=== PATIENT | male | born 1935 | race African-American/Black ===

== ENCOUNTER 2021-03-30 11:05 | Inpatient (IN) | payer BC, OTHER ==
[2021-03-30] MEDS ORDERED: LABETALOL HCL 5 MG/1 ML (100MG/20 ML VIAL) IVPUSH ONE (11:19)
[2021-03-30] MEDS: SODIUM CHLORIDE 1,000 ML IV SCH (11:39)
[2021-03-30 11:43] LABS: HEMATOCRIT 42.9 % (35.4-49); HEMOGLOBIN 14.5 GM/dL (11.7-16.9); MCH 30.7 pg (25.7-33.7); MCHC 33.8 g/dl (32.0-35.9); MEAN CELL VOLUME 90.8 fl (80-96); MEAN PLT VOLUME 8.8 fl (7.5-11.1); PLATELET COUNT 82 10^3/uL (134-434); RBC 4.73 M/mm3 (4.00-5.60); RDW 14.1 % (11.9-15.9); WHITE BLOOD COUNT 5.5 K/mm3 (4.0-10.0)
[2021-03-30 11:49] LABS: INR 1.09 (0.83-1.09); PROTHROMBIN TIME (PATIENT) 13.2 SEC (9.7-13.0)
[2021-03-30 11:51] LABS: ACTIVATED PTT 31.9 SECONDS (25.2-36.5)
[2021-03-30 12:02] LABS: CHLORIDE 103 mmol/L (98-107); SODIUM 138 mmol/L (136-145)
[2021-03-30 12:04] LABS: CALCIUM 9.6 mg/dL (8.5-10.1)
[2021-03-30 12:05] LABS: ALBUMIN 4.6 g/dl (3.4-5.0); ANION GAP 6 MMOL/L (8-16); ANISOCYTOSIS 1+; BLOOD UREA NITROGEN 9.5 mg/dL (7-18); CO2 29 mmol/L (21-32); GLUCOSE,RANDOM 223 mg/dL (74-106); MACROCYTOSIS 0; PLATELET ESTIMATE DECREASED
[2021-03-30 12:08] LABS: CHOLESTEROL 197 mg/dL (50-200); CREATININE 1.1 mg/dL (0.55-1.3); SGOT/AST 80 U/L (15-37); SGPT/ALT 100 U/L (13-61); TRIGLYCERIDES 79 mg/dL (0-150)
[2021-03-30 12:09] LABS: BILIRUBIN,TOTAL 0.7 mg/dL (0.2-1); LDL CHOLESTEROL (ONLY SJRH) 108 mg/dL (5-100)
[2021-03-30 12:11] LABS: ALK PHOS 127 U/L (45-117); HDL CHOLESTEROL 65 mg/dL (40-60)
[2021-03-30] MEDS ORDERED: NICARDIPINE 25 MG in DEXTROSE 5%-WATER - 240 ML IVPB SCH (12:15)
[2021-03-30 12:27] LABS: EPI CELLS 4 /uL (0-25.1); HYALINE CASTS 0 /uL (0-3.1); PH,URINE 8.5 (5.0-8.0); URINE APPEARANCE CLEAR; URINE BACTERIA 7 /uL (0-1359); URINE BILIRUBIN NEGATIVE (NEGATIVE); URINE COLOR YELLOW; URINE GLUCOSE (UA) 1+ (NEGATIVE); URINE KETONE NEGATIVE (NEGATIVE); URINE LEUK ESTERASE NEGATIVE (NEGATIVE); URINE NITRITE NEGATIVE (NEGATIVE); URINE PROTEIN 3+ (NEGATIVE); URINE RBC 32 /uL (0-23.9); URINE UROBILINOGEN 0.2 mg/dL (0.2-1.0); URINE WBC 4 /uL (0-25.8)
[2021-03-30] MEDS ORDERED: PANTOPRAZOLE SODIUM 40 MG/100 ML BAG IVPB ONE (17:53)
[2021-03-30] MEDS: PANTOPRAZOLE SODIUM 40 MG VIAL IVPUSH SCH (18:08)
[2021-03-30] MEDS: NICARDIPINE 25 MG in DEXTROSE 5%-WATER - 240 ML IVPB SCH (18:08)
[2021-03-30] MEDS ORDERED: SODIUM CHLORIDE 0.9% 500 ML INFUS.BAG IV ONE (19:13)
[2021-03-30 20:38] LABS: CREATININE, URINE RANDOM < 13.0 mg/dL (30-150)
[2021-03-30] MEDS: INSULIN SLIDING SCALE (NOVOLOG) 1 VIAL SQ SCH (21:34)
[2021-03-30] MEDS: HEPARIN NA (PORCINE) 5,000 UNITS/ML 1ML VIAL SQ SCH (21:34)
[2021-03-30] MEDS: CHLORHEXIDINE GLUCONATE 4% CLEANSER FOR DECOLONIZATION TP SCH (21:35)
[2021-03-30] MEDS: MUPIROCIN 2% TOPICAL OINTMENT FOR DECOLONIZATION NS SCH (22:00)
[2021-03-30] MEDS ORDERED: ACETAMINOPHEN INJECTION 100 ML IVPB ONE (23:25)
[2021-03-30 23:44] LABS: ALBUMIN 4.3 g/dl (3.4-5.0); BLOOD UREA NITROGEN 7.8 mg/dL (7-18)
[2021-03-30 23:49] LABS: BILIRUBIN,TOTAL 0.8 mg/dL (0.2-1); TOT PROT 8.5 g/dl (6.4-8.2)
[2021-03-31] MEDS ORDERED: INSULIN (NOVOLOG) ASPART 100 UNITS/ML 10ML VIAL ONE (01:17)
[2021-03-31] MEDS: DEXMEDETOMIDINE IN 0.9 % NACL 400 MCG/100 ML VIAL IVPB SCH ×2 (01:40→23:00)
[2021-03-31] MEDS: INSULIN SLIDING SCALE (NOVOLOG) 1 VIAL SQ SCH ×4 (06:24→21:41)
[2021-03-31] MEDS: HEPARIN NA (PORCINE) 5,000 UNITS/ML 1ML VIAL SQ SCH (06:24)
[2021-03-31 07:44] LABS: HEMATOCRIT 36.1 % (35.4-49); HEMOGLOBIN 12.7 GM/dL (11.7-16.9); MCH 31.3 pg (25.7-33.7); MCHC 35.1 g/dl (32.0-35.9); MEAN CELL VOLUME 89.2 fl (80-96); MEAN PLT VOLUME 9.2 fl (7.5-11.1); PLATELET COUNT 81 10^3/uL (134-434); RBC 4.05 M/mm3 (4.00-5.60); RDW 14.2 % (11.9-15.9); WHITE BLOOD COUNT 7.6 K/mm3 (4.0-10.0)
[2021-03-31 08:09] LABS: CALCIUM 8.4 mg/dL (8.5-10.1)
[2021-03-31 08:10] LABS: ALBUMIN 3.6 g/dl (3.4-5.0); BLOOD UREA NITROGEN 9.5 mg/dL (7-18); MAGNESIUM 1.3 mg/dL (1.8-2.4)
[2021-03-31 08:13] LABS: INR 1.25 (0.83-1.09); PROTHROMBIN TIME (PATIENT) 15.3 SEC (9.7-13.0)
[2021-03-31 08:14] LABS: BILIRUBIN,TOTAL 0.8 mg/dL (0.2-1); PHOSPHOROUS 2.5 mg/dL (2.5-4.9); TOT PROT 7.1 g/dl (6.4-8.2)
[2021-03-31] MEDS ORDERED: MAGNESIUM SULFATE IN WATER 2 GM/50 ML IVPB IVPB ONE (08:45)
[2021-03-31 09:54] LABS: ANISOCYTOSIS 0; MACROCYTOSIS 0; PLATELET ESTIMATE DECREASED
[2021-03-31] MEDS: PANTOPRAZOLE SODIUM 40 MG VIAL IVPUSH SCH (10:46)
[2021-03-31] MEDS: ENOXAPARIN NA (PORCINE) 80 MG/0.8 ML DISP.SYRIN SQ SCH ×2 (10:46→21:12)
[2021-03-31] MEDS: MUPIROCIN 2% TOPICAL OINTMENT FOR DECOLONIZATION NS SCH ×2 (10:47→21:12)
[2021-03-31] MEDS ORDERED: LORazepam 2 MG/ML SDV VIAL IVPUSH ONE (10:58)
[2021-03-31] MEDS: NICARDIPINE 25 MG in DEXTROSE 5%-WATER - 240 ML IVPB SCH (18:44)
[2021-03-31] MEDS: LORazepam 2 MG/ML SDV VIAL IVPUSH PRN (19:30)
[2021-03-31] MEDS: CHLORHEXIDINE GLUCONATE 4% CLEANSER FOR DECOLONIZATION TP SCH (21:12)
[2021-03-31] MEDS: SODIUM CHLORIDE 1,000 ML IV SCH (21:12)
[2021-04-01] MEDS: INSULIN SLIDING SCALE (NOVOLOG) 1 VIAL SQ SCH ×4 (06:30→22:27)
[2021-04-01] MEDS ORDERED: MAGNESIUM 2GM/50ML STERILE WATER IVPB IVPB ONE (09:45)
[2021-04-01] MEDS: ENOXAPARIN NA (PORCINE) 80 MG/0.8 ML DISP.SYRIN SQ SCH ×2 (10:55→22:08)
[2021-04-01] MEDS: PANTOPRAZOLE SODIUM 40 MG VIAL IVPUSH SCH (10:55)
[2021-04-01] MEDS: MUPIROCIN 2% TOPICAL OINTMENT FOR DECOLONIZATION NS SCH ×2 (11:03→22:07)
[2021-04-01 11:28] LABS: HEMATOCRIT 40.7 % (35.4-49); HEMOGLOBIN 14.2 GM/dL (11.7-16.9); MCH 31.3 pg (25.7-33.7); MEAN CELL VOLUME 89.5 fl (80-96); PLATELET COUNT 86 10^3/uL (134-434); RBC 4.54 M/mm3 (4.00-5.60); RDW 14.4 % (11.9-15.9); WHITE BLOOD COUNT 8.3 K/mm3 (4.0-10.0)
[2021-04-01 11:31] LABS: INR 1.14 (0.83-1.09); PROTHROMBIN TIME (PATIENT) 13.7 SEC (9.7-13.0)
[2021-04-01 11:34] LABS: ACTIVATED PTT 27.6 SECONDS (25.2-36.5)
[2021-04-01 11:55] LABS: ALBUMIN 3.6 g/dl (3.4-5.0); BLOOD UREA NITROGEN 18.4 mg/dL (7-18); CALCIUM 8.9 mg/dL (8.5-10.1)
[2021-04-01 11:58] LABS: CREATININE 1.4 mg/dL (0.55-1.3)
[2021-04-01 12:00] LABS: BILIRUBIN,TOTAL 1.2 mg/dL (0.2-1); TOT PROT 7.4 g/dl (6.4-8.2)
[2021-04-01] MEDS: LORazepam 2 MG/ML SDV VIAL IVPUSH PRN ×2 (13:10→22:07)
[2021-04-01 13:30] LABS: ANISOCYTOSIS 0; MACROCYTOSIS 0; PLATELET ESTIMATE DECREASED
[2021-04-01] MEDS ORDERED: HALOPERIDOL LACTATE 5 MG/ML IM ONE (13:35)
[2021-04-01] MEDS ORDERED: SODIUM CHLORIDE 0.45% 1,000 ML IV SCH (15:45)
[2021-04-01 16:12] VITALS: BMI 26.6
[2021-04-01] MEDS ORDERED: LABETALOL HCL 5 MG/1 ML (100MG/20 ML VIAL) IVPUSH ONE (17:37)
[2021-04-01] MEDS: NICARDIPINE 25 MG in DEXTROSE 5%-WATER - 240 ML IVPB SCH (17:53)
[2021-04-01] MEDS: ASPIRIN COATED 81 MG TABLET.EC PO SCH (17:59)
[2021-04-01] MEDS: SODIUM CHLORIDE 1,000 ML IV SCH (19:50)
[2021-04-01] MEDS ORDERED: ATORVASTATIN CA 80 MG TABLET (FP) PO SCH (22:00)
[2021-04-01] MEDS: CHLORHEXIDINE GLUCONATE 4% CLEANSER FOR DECOLONIZATION TP SCH (22:07)
[2021-04-02] MEDS: INSULIN SLIDING SCALE (NOVOLOG) 1 VIAL SQ SCH ×5 (06:48→21:17)
[2021-04-02 08:20] LABS: HEMATOCRIT 39.7 % (35.4-49); HEMOGLOBIN 13.7 GM/dL (11.7-16.9); MCH 30.8 pg (25.7-33.7); MCHC 34.7 g/dl (32.0-35.9); MEAN CELL VOLUME 88.8 fl (80-96); MEAN PLT VOLUME 9.4 fl (7.5-11.1); PLATELET COUNT 95 10^3/uL (134-434); RBC 4.47 M/mm3 (4.00-5.60); RDW 14.3 % (11.9-15.9); WHITE BLOOD COUNT 12.1 K/mm3 (4.0-10.0)
[2021-04-02 08:40] LABS: CALCIUM 8.7 mg/dL (8.5-10.1)
[2021-04-02 08:41] LABS: MAGNESIUM 2.2 mg/dL (1.8-2.4)
[2021-04-02 08:44] LABS: ALBUMIN 3.6 g/dl (3.4-5.0); BLOOD UREA NITROGEN 18.6 mg/dL (7-18); CREATININE 1.3 mg/dL (0.55-1.3)
[2021-04-02 08:45] LABS: BILIRUBIN,TOTAL 1.2 mg/dL (0.2-1); TOT PROT 7.5 g/dl (6.4-8.2)
[2021-04-02 08:47] LABS: PHOSPHOROUS 2.2 mg/dL (2.5-4.9)
[2021-04-02] MEDS: ENOXAPARIN NA (PORCINE) 80 MG/0.8 ML DISP.SYRIN SQ SCH ×2 (10:41→21:16)
[2021-04-02] MEDS: ASPIRIN COATED 81 MG TABLET.EC PO SCH (10:42)
[2021-04-02] MEDS: DEXMEDETOMIDINE IN 0.9 % NACL 400 MCG/100 ML VIAL IVPB SCH (10:42)
[2021-04-02] MEDS: MUPIROCIN 2% TOPICAL OINTMENT FOR DECOLONIZATION NS SCH (10:42)
[2021-04-02] MEDS: PANTOPRAZOLE SODIUM 40 MG VIAL IVPUSH SCH (10:42)
[2021-04-02 12:08] LABS: ANISOCYTOSIS 0; MACROCYTOSIS 0; PLATELET ESTIMATE DECREASED
[2021-04-02] MEDS ORDERED: NAPH,MB-DB/K PH,MBDB POWDER PACKET PO ONE (13:45)
[2021-04-02] MEDS: ACETAMINOPHEN 325 MG TABLET (FP) PO PRN (13:46)
[2021-04-02] MEDS ORDERED: DEXMEDETOMIDINE IN 0.9 % NACL 400 MCG/100 ML VIAL IVPB SCH (16:18)
[2021-04-02] MEDS ORDERED: NICARDIPINE 25 MG in DEXTROSE 5%-WATER - 240 ML IVPB SCH (16:18)
[2021-04-02] MEDS ORDERED: LORazepam 2 MG/ML SDV VIAL IVPUSH PRN (16:18)
[2021-04-02] MEDS: ATORVASTATIN CA 80 MG TABLET (FP) PO SCH (21:16)
[2021-04-02] MEDS ORDERED: CHLORHEXIDINE GLUCONATE 4% CLEANSER FOR DECOLONIZATION TP SCH (22:00)
[2021-04-02] MEDS ORDERED: MUPIROCIN 2% TOPICAL OINTMENT FOR DECOLONIZATION NS SCH (22:00)
[2021-04-03] MEDS: INSULIN SLIDING SCALE (NOVOLOG) 1 VIAL SQ SCH ×4 (06:26→21:49)
[2021-04-03] MEDS: PANTOPRAZOLE SODIUM 40 MG VIAL IVPUSH SCH (09:30)
[2021-04-03] MEDS: ENOXAPARIN NA (PORCINE) 80 MG/0.8 ML DISP.SYRIN SQ SCH ×2 (09:30→21:50)
[2021-04-03] MEDS: ASPIRIN COATED 81 MG TABLET.EC PO SCH (09:31)
[2021-04-03] MEDS: metoPROLOL SUCCINATE 25 MG TAB.SR.24H (FP) PO SCH (09:31)
[2021-04-03] MEDS: TAMSULOSIN HCL 0.4 MG CAP PO SCH (09:31)
[2021-04-03] MEDS: ATORVASTATIN CA 80 MG TABLET (FP) PO SCH (21:50)
[2021-04-04] MEDS: INSULIN SLIDING SCALE (NOVOLOG) 1 VIAL SQ SCH ×4 (06:43→21:20)
[2021-04-04 08:17] LABS: HEMATOCRIT 34.2 % (35.4-49); HEMOGLOBIN 11.8 GM/dL (11.7-16.9); MCHC 34.5 g/dl (32.0-35.9); MEAN CELL VOLUME 89.8 fl (80-96); MEAN PLT VOLUME 10.6 fl (7.5-11.1); PLATELET COUNT 99 10^3/uL (134-434); RDW 14.3 % (11.9-15.9)
[2021-04-04 08:46] LABS: BLOOD UREA NITROGEN 19.8 mg/dL (7-18); CALCIUM 8.4 mg/dL (8.5-10.1)
[2021-04-04 08:49] LABS: CREATININE 1.1 mg/dL (0.55-1.3); PHOSPHOROUS 2.7 mg/dL (2.5-4.9)
[2021-04-04 08:52] LABS: BILIRUBIN,TOTAL 0.6 mg/dL (0.2-1); TOT PROT 6.2 g/dl (6.4-8.2)
[2021-04-04 08:57] LABS: ALBUMIN 2.8 g/dl (3.4-5.0)
[2021-04-04] MEDS: ENOXAPARIN NA (PORCINE) 80 MG/0.8 ML DISP.SYRIN SQ SCH ×2 (09:12→21:18)
[2021-04-04] MEDS: metoPROLOL SUCCINATE 25 MG TAB.SR.24H (FP) PO SCH (09:12)
[2021-04-04] MEDS: TAMSULOSIN HCL 0.4 MG CAP PO SCH (09:12)
[2021-04-04] MEDS: ASPIRIN COATED 81 MG TABLET.EC PO SCH (09:12)
[2021-04-04] MEDS: PANTOPRAZOLE SODIUM 40 MG VIAL IVPUSH SCH (09:12)
[2021-04-04] MEDS: INSULIN (LEVEMIR) 100 UNITS/ML UNITS SQ SCH ×2 (12:14→21:18)
[2021-04-04 13:07] LABS: ANISOCYTOSIS 0; MACROCYTOSIS 0; PLATELET ESTIMATE DECREASED
[2021-04-04] MEDS: ACETAMINOPHEN 325 MG TABLET (FP) PO PRN (21:16)
[2021-04-04] MEDS: ATORVASTATIN CA 80 MG TABLET (FP) PO SCH (21:17)
[2021-04-05] MEDS: INSULIN (LEVEMIR) 100 UNITS/ML UNITS SQ SCH ×3 (06:11→21:51)
[2021-04-05] MEDS: INSULIN SLIDING SCALE (NOVOLOG) 1 VIAL SQ SCH ×4 (06:12→21:50)
[2021-04-05] MEDS: TAMSULOSIN HCL 0.4 MG CAP PO SCH (09:12)
[2021-04-05] MEDS: ASPIRIN COATED 81 MG TABLET.EC PO SCH (09:12)
[2021-04-05] MEDS: metoPROLOL SUCCINATE 25 MG TAB.SR.24H (FP) PO SCH (09:12)
[2021-04-05] MEDS: APIXABAN 5 MG TABLET PO SCH ×2 (09:12→21:44)
[2021-04-05] MEDS: ACETAMINOPHEN 325 MG TABLET (FP) PO PRN (09:12)
[2021-04-05] MEDS: ATORVASTATIN CA 80 MG TABLET (FP) PO SCH (21:43)
[2021-04-06] MEDS: ACETAMINOPHEN 325 MG TABLET (FP) PO PRN ×2 (05:53→21:05)
[2021-04-06] MEDS: INSULIN SLIDING SCALE (NOVOLOG) 1 VIAL SQ SCH ×4 (06:00→21:11)
[2021-04-06] MEDS: INSULIN (LEVEMIR) 100 UNITS/ML UNITS SQ SCH ×2 (06:01→21:11)
[2021-04-06] MEDS: metoPROLOL SUCCINATE 25 MG TAB.SR.24H (FP) PO SCH (10:12)
[2021-04-06] MEDS: APIXABAN 5 MG TABLET PO SCH ×2 (10:12→21:05)
[2021-04-06] MEDS: TAMSULOSIN HCL 0.4 MG CAP PO SCH (10:12)
[2021-04-06] MEDS: ASPIRIN COATED 81 MG TABLET.EC PO SCH (10:13)
[2021-04-06] MEDS: ATORVASTATIN CA 80 MG TABLET (FP) PO SCH (21:04)
[2021-04-07] MEDS: INSULIN SLIDING SCALE (NOVOLOG) 1 VIAL SQ SCH ×4 (06:03→21:54)
[2021-04-07] MEDS: INSULIN (LEVEMIR) 100 UNITS/ML UNITS SQ SCH ×2 (06:04→21:49)
[2021-04-07 06:45] LABS: BASO % 0.9 % (0-2.0); EOS % 0.2 % (0-4.5); HEMATOCRIT 33.6 % (35.4-49); HEMOGLOBIN 11.8 GM/dL (11.7-16.9); LYMPH % 22.8 % (8-40); MCH 31.4 pg (25.7-33.7); MEAN CELL VOLUME 89.7 fl (80-96); MEAN PLT VOLUME 9.1 fl (7.5-11.1); NEUT % 44.1 % (42.8-82.8); PLATELET COUNT 185 10^3/uL (134-434); RBC 3.74 M/mm3 (4.00-5.60); RDW 13.7 % (11.9-15.9); WHITE BLOOD COUNT 6.5 K/mm3 (4.0-10.0)
[2021-04-07] MEDS ORDERED: INSULIN SLIDING SCALE (NOVOLOG) 1 VIAL SQ ONE (06:54)
[2021-04-07] MEDS ORDERED: INSULIN (LEVEMIR) 100 UNITS/ML UNITS SQ ONE (06:55)
[2021-04-07 07:04] LABS: CALCIUM 9.4 mg/dL (8.5-10.1)
[2021-04-07 07:05] LABS: BLOOD UREA NITROGEN 10.8 mg/dL (7-18)
[2021-04-07 07:10] LABS: BILIRUBIN,TOTAL 0.7 mg/dL (0.2-1); TOT PROT 6.7 g/dl (6.4-8.2)
[2021-04-07] MEDS: TAMSULOSIN HCL 0.4 MG CAP PO SCH (09:07)
[2021-04-07] MEDS: APIXABAN 5 MG TABLET PO SCH ×2 (09:07→21:49)
[2021-04-07] MEDS: ASPIRIN COATED 81 MG TABLET.EC PO SCH (09:07)
[2021-04-07] MEDS: metoPROLOL SUCCINATE 25 MG TAB.SR.24H (FP) PO SCH (09:08)
[2021-04-07 10:02] LABS: ANISOCYTOSIS 0; MACROCYTOSIS 0; PLATELET ESTIMATE NORMAL
[2021-04-07] MEDS ORDERED: FAMOTIDINE 20 MG TABLET PO ONE (18:00)
[2021-04-07] MEDS: ATORVASTATIN CA 80 MG TABLET (FP) PO SCH (21:49)
[2021-04-07] MEDS: ACETAMINOPHEN 325 MG TABLET (FP) PO PRN (21:49)
[2021-04-08] MEDS: INSULIN SLIDING SCALE (NOVOLOG) 1 VIAL SQ SCH ×4 (06:25→21:53)
[2021-04-08] MEDS: INSULIN (LEVEMIR) 100 UNITS/ML UNITS SQ SCH ×2 (06:26→21:55)
[2021-04-08] MEDS: TAMSULOSIN HCL 0.4 MG CAP PO SCH (08:58)
[2021-04-08] MEDS: ASPIRIN COATED 81 MG TABLET.EC PO SCH (09:01)
[2021-04-08] MEDS: FAMOTIDINE 20 MG TABLET PO SCH ×2 (09:01→21:50)
[2021-04-08] MEDS: APIXABAN 5 MG TABLET PO SCH ×2 (09:01→21:50)
[2021-04-08] MEDS: RAMIPRIL 2.5 MG CAPSULE PO SCH (15:35)
[2021-04-08] MEDS: ATORVASTATIN CA 80 MG TABLET (FP) PO SCH (21:49)
[2021-04-09] MEDS: INSULIN SLIDING SCALE (NOVOLOG) 1 VIAL SQ SCH ×4 (06:25→21:21)
[2021-04-09] MEDS: INSULIN (LEVEMIR) 100 UNITS/ML UNITS SQ SCH ×2 (06:26→21:27)
[2021-04-09] MEDS: TAMSULOSIN HCL 0.4 MG CAP PO SCH (08:37)
[2021-04-09] MEDS ORDERED: PT OWN MED DRAWER 7, Y5N ONE (10:11)
[2021-04-09] MEDS: ASPIRIN COATED 81 MG TABLET.EC PO SCH (10:16)
[2021-04-09] MEDS: APIXABAN 5 MG TABLET PO SCH ×2 (10:16→21:21)
[2021-04-09] MEDS: FAMOTIDINE 20 MG TABLET PO SCH ×2 (10:16→21:20)
[2021-04-09] MEDS: RAMIPRIL 2.5 MG CAPSULE PO SCH (10:16)
[2021-04-09 13:57] LABS: CHLORIDE 97 mmol/L (98-107); SODIUM 133 mmol/L (136-145)
[2021-04-09 13:57] LABS: CHLORIDE 96 mmol/L (98-107); SODIUM 132 mmol/L (136-145)
[2021-04-09 13:58] LABS: CALCIUM 9.3 mg/dL (8.5-10.1)
[2021-04-09 13:59] LABS: ANION GAP 7 MMOL/L (8-16); BLOOD UREA NITROGEN 16.6 mg/dL (7-18); CO2 29 mmol/L (21-32); GLUCOSE,RANDOM 274 mg/dL (74-106)
[2021-04-09 13:59] LABS: CALCIUM 9.3 mg/dL (8.5-10.1)
[2021-04-09 14:00] LABS: ANION GAP 8 MMOL/L (8-16); CO2 28 mmol/L (21-32); GLUCOSE,RANDOM 278 mg/dL (74-106)
[2021-04-09 14:02] LABS: CREATININE 1.2 mg/dL (0.55-1.3)
[2021-04-09 14:03] LABS: CREATININE 1.1 mg/dL (0.55-1.3)
[2021-04-09] MEDS: RAMIPRIL 5 MG CAPSULE PO SCH (14:56)
[2021-04-09] MEDS: ATORVASTATIN CA 80 MG TABLET (FP) PO SCH (21:20)
[2021-04-09] MEDS: ACETAMINOPHEN 325 MG TABLET (FP) PO PRN (22:58)
[2021-04-10] MEDS: INSULIN (LEVEMIR) 100 UNITS/ML UNITS SQ SCH (06:16)
[2021-04-10] MEDS: INSULIN SLIDING SCALE (NOVOLOG) 1 VIAL SQ SCH ×2 (06:16→11:15)
[2021-04-10] MEDS: RAMIPRIL 5 MG CAPSULE PO SCH (10:16)
[2021-04-10] MEDS: APIXABAN 5 MG TABLET PO SCH (10:16)
[2021-04-10] MEDS: FAMOTIDINE 20 MG TABLET PO SCH (10:16)
[2021-04-10] MEDS: TAMSULOSIN HCL 0.4 MG CAP PO SCH (10:16)
[2021-04-10] MEDS: ASPIRIN COATED 81 MG TABLET.EC PO SCH (10:16)
[2021-04-10] MEDS ORDERED: RAMIPRIL 2.5 MG CAPSULE PO SCH (11:45)
[2021-04-10 11:52] VITALS: BP 122/62; PULSE 69; TEMP 98.7
== END 2021-04-10 10:45 | DRG 65 ==
LOC: JER 11:05 → JERBED 16:03 → JICU 21:29 → J4S 04-01 20:47
PROVIDERS: ADMIT Family Medicine; ATTEND Family Medicine
DX: I63.89 Other cerebral infarction (principal); I16.1 Hypertensive emergency; N17.9 Acute kidney failure, unspecified; I25.10 Atherosclerotic heart disease of native coronary artery without angina pectoris; I10 Essential (primary) hypertension; E11.65 Type 2 diabetes mellitus with hyperglycemia; R29.707 NIHSS score 7; F03.90 Unspecified dementia, unspecified severity, without behavioral disturbance, psychotic disturbance, mood disturbance, and anxiety; N40.0 Benign prostatic hyperplasia without lower urinary tract symptoms; Z95.1 Presence of aortocoronary bypass graft; Z79.01 Long term (current) use of anticoagulants; I48.0 Paroxysmal atrial fibrillation; E78.5 Hyperlipidemia, unspecified; R35.8 Other polyuria
CPT/HCPCS: 36415; 70450-TC; 70496-TC; 70498-TC; 70551-TC; 71045-TC-FY; 80048; 80053; 80061; 81003; 82550; 82553; 82570; 82962; 83036; 83735; 83935; 84100; 84300; 84484; 85025; 85610; 85730; 86850; 86900; 86901; 87040; 93005; 93010; 93306-TC; 93971; 97116-GP; 97162-GP; 99285-25; C9803; J0131; J1644; Q9967; U0003; U0005

== ENCOUNTER 2021-04-11 15:45 | Inpatient (IN) | payer BC, OTHER ==
[2021-04-11 16:14] VITALS: BMI 29.6
[2021-04-11 17:57] LABS: HEMATOCRIT 35.7 % (35.4-49); HEMOGLOBIN 11.8 GM/dL (11.7-16.9); MCH 30.4 pg (25.7-33.7); MCHC 33.1 g/dl (32.0-35.9); MEAN CELL VOLUME 91.7 fl (80-96); PLATELET COUNT 276 10^3/uL (134-434); RBC 3.89 M/mm3 (4.00-5.60); RDW 14.3 % (11.9-15.9); WHITE BLOOD COUNT 10.4 K/mm3 (4.0-10.0)
[2021-04-11 18:02] LABS: CHLORIDE 98 mmol/L (98-107); SODIUM 134 mmol/L (136-145)
[2021-04-11 18:04] LABS: CALCIUM 10.3 mg/dL (8.5-10.1)
[2021-04-11 18:05] LABS: ALBUMIN 3.6 g/dl (3.4-5.0); ANION GAP 8 MMOL/L (8-16); BLOOD UREA NITROGEN 24.2 mg/dL (7-18); CO2 28 mmol/L (21-32); GLUCOSE,RANDOM 197 mg/dL (74-106)
[2021-04-11 18:08] LABS: CREATININE 1.5 mg/dL (0.55-1.3); SGOT/AST 58 U/L (15-37); SGPT/ALT 65 U/L (13-61)
[2021-04-11 18:09] LABS: BILIRUBIN,TOTAL 0.8 mg/dL (0.2-1)
[2021-04-11 18:10] LABS: ALK PHOS 103 U/L (45-117)
[2021-04-11] MEDS ORDERED: LACTATED RINGERS SOLUTION 1000 ML INFUS.BAG IV ONE (18:12)
[2021-04-11] MEDS: INSULIN SLIDING SCALE (NOVOLOG) 1 VIAL SQ SCH (22:36)
[2021-04-12] MEDS: DEXTROSE 5%-0.45% SALINE 1,000 ML IV SCH (05:56)
[2021-04-12 06:10] LABS: HEMATOCRIT 34.9 % (35.4-49); HEMOGLOBIN 11.8 GM/dL (11.7-16.9); MCH 31.2 pg (25.7-33.7); MCHC 33.9 g/dl (32.0-35.9); MEAN PLT VOLUME 9.2 fl (7.5-11.1); PLATELET COUNT 245 10^3/uL (134-434); RBC 3.79 M/mm3 (4.00-5.60); RDW 14.2 % (11.9-15.9); WHITE BLOOD COUNT 11.2 K/mm3 (4.0-10.0)
[2021-04-12 06:15] LABS: INR 1.41 (0.83-1.09); PROTHROMBIN TIME (PATIENT) 17.4 SEC (9.7-13.0)
[2021-04-12 06:18] LABS: ACTIVATED PTT 30.3 SECONDS (25.2-36.5)
[2021-04-12 06:27] LABS: CALCIUM 9.4 mg/dL (8.5-10.1)
[2021-04-12 06:31] LABS: CREATININE 1.2 mg/dL (0.55-1.3)
[2021-04-12] MEDS: INSULIN SLIDING SCALE (NOVOLOG) 1 VIAL SQ SCH ×4 (08:04→21:22)
[2021-04-12] MEDS ORDERED: metoPROLOL SUCCINATE 25 MG TAB.SR.24H (FP) ONE (08:53)
[2021-04-12] MEDS ORDERED: FAMOTIDINE 20 MG TABLET ONE (08:53)
[2021-04-12] MEDS ORDERED: TAMSULOSIN HCL 0.4 MG CAP ONE (08:54)
[2021-04-12] MEDS: TAMSULOSIN HCL 0.4 MG CAP PO SCH (09:00)
[2021-04-12 09:34] LABS: ANISOCYTOSIS 0; HELMET CELLS 0; HOWELL-JOLLY BODIES 0; MACROCYTOSIS 0; OVALOCYTE 0; PLATELET ESTIMATE NORMAL; ROULEAU 0; SICKELED CELLS 0; TARGET CELLS 0; TEAR DROP CELLS 0; TOXIC GRANULATION 0
[2021-04-12] MEDS ORDERED: ASPIRIN COATED 81 MG TABLET.EC PO SCH (10:00)
[2021-04-12] MEDS: metoPROLOL SUCCINATE 25 MG TAB.SR.24H (FP) PO SCH (10:08)
[2021-04-12] MEDS: FAMOTIDINE 20 MG TABLET PO SCH ×2 (10:08→21:22)
[2021-04-12] MEDS: RAMIPRIL 2.5 MG CAPSULE PO SCH (10:08)
[2021-04-12] MEDS: ATORVASTATIN CA 80 MG TABLET (FP) PO SCH (21:22)
[2021-04-12] MEDS: INSULIN (LEVEMIR) 100 UNITS/ML UNITS SQ SCH (22:34)
[2021-04-13] MEDS: DEXTROSE 5%-0.45% SALINE 1,000 ML IV SCH (06:15)
[2021-04-13] MEDS: INSULIN SLIDING SCALE (NOVOLOG) 1 VIAL SQ SCH ×4 (06:16→21:48)
[2021-04-13 07:37] LABS: HEMATOCRIT 29.9 % (35.4-49); HEMOGLOBIN 10.3 GM/dL (11.7-16.9); MCH 31.6 pg (25.7-33.7); MCHC 34.6 g/dl (32.0-35.9); MEAN CELL VOLUME 91.5 fl (80-96); MEAN PLT VOLUME 9.4 fl (7.5-11.1); PLATELET COUNT 217 10^3/uL (134-434); RBC 3.26 M/mm3 (4.00-5.60); RDW 14.1 % (11.9-15.9); WHITE BLOOD COUNT 8.3 K/mm3 (4.0-10.0)
[2021-04-13 08:06] LABS: BLOOD UREA NITROGEN 15.5 mg/dL (7-18); CALCIUM 8.8 mg/dL (8.5-10.1); MAGNESIUM 1.9 mg/dL (1.8-2.4)
[2021-04-13 08:23] LABS: ALBUMIN 2.8 g/dl (3.4-5.0)
[2021-04-13] MEDS: FAMOTIDINE 20 MG TABLET PO SCH ×2 (09:47→21:45)
[2021-04-13] MEDS: ASPIRIN COATED 81 MG TABLET.EC PO SCH (09:47)
[2021-04-13] MEDS: RAMIPRIL 2.5 MG CAPSULE PO SCH (09:47)
[2021-04-13] MEDS: metoPROLOL SUCCINATE 25 MG TAB.SR.24H (FP) PO SCH (09:47)
[2021-04-13] MEDS: TAMSULOSIN HCL 0.4 MG CAP PO SCH (09:47)
[2021-04-13 11:19] LABS: ANISOCYTOSIS 1+; MACROCYTOSIS 0; PLATELET ESTIMATE NORMAL
[2021-04-13] MEDS ORDERED: SODIUM CHLORIDE 250 ML IV ONE (15:30)
[2021-04-13] MEDS: ATORVASTATIN CA 80 MG TABLET (FP) PO SCH (21:45)
[2021-04-13] MEDS: INSULIN (LEVEMIR) 100 UNITS/ML UNITS SQ SCH (21:47)
[2021-04-14] MEDS: INSULIN SLIDING SCALE (NOVOLOG) 1 VIAL SQ SCH ×4 (06:06→22:25)
[2021-04-14] MEDS: DEXTROSE 5%-0.45% SALINE 1,000 ML IV SCH (06:07)
[2021-04-14 08:09] LABS: HEMOGLOBIN 10.3 GM/dL (11.7-16.9); MCH 31.5 pg (25.7-33.7); MCHC 34.4 g/dl (32.0-35.9); MEAN CELL VOLUME 91.6 fl (80-96); PLATELET COUNT 213 10^3/uL (134-434); RBC 3.28 M/mm3 (4.00-5.60); WHITE BLOOD COUNT 7.7 K/mm3 (4.0-10.0)
[2021-04-14 08:32] LABS: ALBUMIN 2.6 g/dl (3.4-5.0); BLOOD UREA NITROGEN 10.8 mg/dL (7-18); CALCIUM 8.4 mg/dL (8.5-10.1)
[2021-04-14 08:36] LABS: BILIRUBIN,TOTAL 0.9 mg/dL (0.2-1)
[2021-04-14 09:21] LABS: ANISOCYTOSIS 1+; MACROCYTOSIS 0; PLATELET ESTIMATE NORMAL
[2021-04-14] MEDS: FAMOTIDINE 20 MG TABLET PO SCH ×2 (10:14→22:17)
[2021-04-14] MEDS: RAMIPRIL 2.5 MG CAPSULE PO SCH (10:14)
[2021-04-14] MEDS: TAMSULOSIN HCL 0.4 MG CAP PO SCH (10:14)
[2021-04-14] MEDS: metoPROLOL SUCCINATE 25 MG TAB.SR.24H (FP) PO SCH (10:14)
[2021-04-14] MEDS: ATORVASTATIN CA 80 MG TABLET (FP) PO SCH (22:17)
[2021-04-14] MEDS: INSULIN (LEVEMIR) 100 UNITS/ML UNITS SQ SCH (22:24)
[2021-04-15] MEDS ORDERED: ACETAMINOPHEN 325 MG TABLET (FP) PO ONE (01:10)
[2021-04-15] MEDS: DEXTROSE 5%-0.45% SALINE 1,000 ML IV SCH (05:43)
[2021-04-15] MEDS: INSULIN SLIDING SCALE (NOVOLOG) 1 VIAL SQ SCH ×4 (06:19→21:49)
[2021-04-15 07:24] LABS: BASO % 0.6 % (0-2.0); EOS % 0.1 % (0-4.5); HEMATOCRIT 31.7 % (35.4-49); LYMPH % 19.9 % (8-40); MCH 31.5 pg (25.7-33.7); MCHC 34.7 g/dl (32.0-35.9); MEAN CELL VOLUME 90.7 fl (80-96); MEAN PLT VOLUME 9.5 fl (7.5-11.1); MONO % 33.8 % (3.8-10.2); NEUT % 45.6 % (42.8-82.8); PLATELET COUNT 209 10^3/uL (134-434); RBC 3.49 M/mm3 (4.00-5.60); RDW 13.9 % (11.9-15.9); WHITE BLOOD COUNT 8.2 K/mm3 (4.0-10.0)
[2021-04-15 07:31] LABS: ALBUMIN 2.8 g/dl (3.4-5.0); BLOOD UREA NITROGEN 9.3 mg/dL (7-18); CALCIUM 8.6 mg/dL (8.5-10.1)
[2021-04-15 07:32] LABS: MAGNESIUM 1.8 mg/dL (1.8-2.4)
[2021-04-15 07:36] LABS: TOT PROT 6.4 g/dl (6.4-8.2)
[2021-04-15] MEDS: FAMOTIDINE 20 MG TABLET PO SCH ×2 (09:13→21:41)
[2021-04-15] MEDS: RAMIPRIL 2.5 MG CAPSULE PO SCH (09:13)
[2021-04-15] MEDS: TAMSULOSIN HCL 0.4 MG CAP PO SCH (09:13)
[2021-04-15] MEDS: ASPIRIN COATED 81 MG TABLET.EC PO SCH (09:14)
[2021-04-15] MEDS: metoPROLOL SUCCINATE 25 MG TAB.SR.24H (FP) PO SCH (09:14)
[2021-04-15 09:24] LABS: ANISOCYTOSIS 0; MACROCYTOSIS 0; PLATELET ESTIMATE NORMAL
[2021-04-15] MEDS: ATORVASTATIN CA 80 MG TABLET (FP) PO SCH (21:41)
[2021-04-15] MEDS: INSULIN (LEVEMIR) 100 UNITS/ML UNITS SQ SCH (21:48)
[2021-04-16] MEDS: INSULIN SLIDING SCALE (NOVOLOG) 1 VIAL SQ SCH ×4 (06:34→21:26)
[2021-04-16] MEDS: TAMSULOSIN HCL 0.4 MG CAP PO SCH (09:36)
[2021-04-16] MEDS: FAMOTIDINE 20 MG TABLET PO SCH ×2 (09:36→21:26)
[2021-04-16] MEDS: metoPROLOL SUCCINATE 25 MG TAB.SR.24H (FP) PO SCH (09:36)
[2021-04-16] MEDS: RAMIPRIL 2.5 MG CAPSULE PO SCH (09:36)
[2021-04-16] MEDS: ATORVASTATIN CA 80 MG TABLET (FP) PO SCH (21:26)
[2021-04-16] MEDS: INSULIN (LEVEMIR) 100 UNITS/ML UNITS SQ SCH (21:27)
[2021-04-17] MEDS: INSULIN SLIDING SCALE (NOVOLOG) 1 VIAL SQ SCH ×4 (06:48→21:35)
[2021-04-17] MEDS: ASPIRIN COATED 81 MG TABLET.EC PO SCH (09:28)
[2021-04-17] MEDS: FAMOTIDINE 20 MG TABLET PO SCH ×2 (09:28→21:36)
[2021-04-17] MEDS: TAMSULOSIN HCL 0.4 MG CAP PO SCH (09:28)
[2021-04-17] MEDS: metoPROLOL SUCCINATE 25 MG TAB.SR.24H (FP) PO SCH (09:29)
[2021-04-17] MEDS: RAMIPRIL 5 MG CAPSULE PO SCH ×2 (10:15→11:06)
[2021-04-17] MEDS: ATORVASTATIN CA 80 MG TABLET (FP) PO SCH (21:34)
[2021-04-17] MEDS: INSULIN (LEVEMIR) 100 UNITS/ML UNITS SQ SCH (21:34)
[2021-04-18] MEDS: INSULIN SLIDING SCALE (NOVOLOG) 1 VIAL SQ SCH ×2 (06:20→12:23)
[2021-04-18] MEDS ORDERED: amLODIPine BESYLATE 5 MG TABLET (FP) PO SCH (10:00)
[2021-04-18] MEDS: FAMOTIDINE 20 MG TABLET PO SCH (10:14)
[2021-04-18] MEDS: RAMIPRIL 5 MG CAPSULE PO SCH (10:14)
[2021-04-18] MEDS: TAMSULOSIN HCL 0.4 MG CAP PO SCH (10:14)
[2021-04-18] MEDS: metoPROLOL SUCCINATE 25 MG TAB.SR.24H (FP) PO SCH (10:15)
[2021-04-18 14:15] VITALS: BP 118/61; PULSE 78; TEMP 98.2
== END 2021-04-18 16:37 | DRG 65 ==
LOC: JER 15:45 → JERBED 18:51 → J4W 04-12 20:09
PROVIDERS: ADMIT Internal Medicine; ATTEND Family Medicine
DX: I61.8 Other nontraumatic intracerebral hemorrhage (principal); I69.354 Hemiplegia and hemiparesis following cerebral infarction affecting left non-dominant side; N17.9 Acute kidney failure, unspecified; R29.710 NIHSS score 10; I25.10 Atherosclerotic heart disease of native coronary artery without angina pectoris; I10 Essential (primary) hypertension; E11.9 Type 2 diabetes mellitus without complications; E78.5 Hyperlipidemia, unspecified; F03.90 Unspecified dementia, unspecified severity, without behavioral disturbance, psychotic disturbance, mood disturbance, and anxiety; E86.0 Dehydration; H40.9 Unspecified glaucoma; I48.0 Paroxysmal atrial fibrillation; I45.10 Unspecified right bundle-branch block; R07.9 Chest pain, unspecified; R09.02 Hypoxemia; Z95.1 Presence of aortocoronary bypass graft
CPT/HCPCS: 36415; 70450-TC; 71045-TC-FY; 80048; 80053; 82550; 82553; 82962; 83036; 83735; 84484; 85025; 85610; 85730; 93005; 93010; 97116-GP; 97162-GP; 99285-25; C9803; U0003; U0005